=== PATIENT | female | born 1995 | race Caucasian/White ===

== ENCOUNTER 2018-02-09 18:19 | Emergency (ER) | payer SELFPAY ==
[2018-02-09] MEDS ORDERED: NA CHLORIDE 0.9% 1,000 ML ONE (19:57)
[2018-02-09 20:00] LABS: Bicarbonate 26 mEq/L (21-31); Glucose Level 95 mg/dL (65-120); Potassium 3.7 mEq/L (3.6-5.0); Sodium Level 138 mEq/L (135-145)
[2018-02-09 20:01] LABS: BUN Blood Urea Nitrogen 13 mg/dL (6-20)
[2018-02-09 20:05] LABS: Urine Blood 2+ (NEG); Urine Glucose NEGATIVE (NEG); Urine Protein NEGATIVE (NEG); Urine Specific Gravity 1.015 (1.005-1.030); Urine pH 5.5 (5.0-7.0)
[2018-02-09 20:14] LABS: HCG, Quantitative < 5.0 mIU/mL (<5)
[2018-02-09 20:22] LABS: Absolute Monocytes 0.8 K/uL (0.1-1.3); Absolute Neutrophil 7.7 K/uL (1.8-8.0); Basophils % 0.6 % (0-1.3); Eosinophils % 1.2 % (0-4.4); Hematocrit 44.9 % (36.0-45.0); Lymphocytes % 25.8 % (15.3-44.8); MCH 29.4 pg (27.0-35.0); MCV 87.5 fL (80-100); MPV 9.1 fL (7.6-11.3); Monocytes % 6.9 % (3.3-12.3); RBC Red Blood Cell Count 5.13 M/uL (3.86-4.86)
[2018-02-09 20:35] LABS: Platelet Estimate ADEQ; Urine White Blood Cell Casts OK
[2018-02-09 20:36] LABS: Blood Morphology Comment NOT SEEN (NOT SEEN)
--- NOTE | 2018-02-09 21:44 | RAD REPORT ---
EXAM DESCRIPTION: US - Transvaginal Study Probe - 02/09/2018 8:29 pm CLINICAL HISTORY: Vaginal bleeding, pelvic pain. COMPARISON: None. FINDINGS: The uterus is normal in size, shape and echotexture. The uterus measures 6.1 x 4.2 x 3.3 c m. The endometrial stripe measures 6 mm, normal. Both ovaries are normal in size, shape and echotexture. The right ovary measures 3.6 x 2.0 x 1.6 cm. The left ovary measures 3.0 x 2.5 x 2.0 cm. No ovarian or parovarian lesions. No adnexal masses. Normal Doppler blood flow was demonstrated to both ovaries. IMPRESSION: Unremarkable study.
--- NOTE | 2018-02-09 21:56 | EDPHYS ---
Physician Documentation [facility] Name: Gloria Mason Age: 22 yrs Sex: Female : 1995 Arrival Date: 02/09/2018 Time: 18:20 Bed 2 Private MD: ED Physician Young Vuong HPI: 02/09 19:25 This 22 yrs old Female presents to ER via Ambulatory with complaints of pkl Vaginal Bleeding, Abdominal Pain. 19:25 The patient presents with pelvic pain, vaginal bleeding that is. Onset: The pkl symptoms/episode began/occurred yesterday. Patient said her menstrual period is about 10 days late. 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 - Social history:: Smoking status: Patient uses tobacco products, smokes one-half pack cigarettes per day. ROS: 19:25 Positive for pelvic pain, vaginal bleeding. pkl 19:25 Eyes: Negative for injury, pain, redness, and discharge, ENT: Negative for injury, pain, and discharge, Neck: Negative for injury, pain, and swelling, Cardiovascular: Negative for chest pain, palpitations, and edema, Respiratory: Negative for shortness of breath, cough, wheezing, and pleuritic chest pain. 19:25 Abdomen/GI: Positive for abdominal pain, of the right lower quadrant and left lower quadrant, Negative for nausea, vomiting, and diarrhea. 19:25 Back: Negative for acute changes. 19:25 MS/extremity: Negative for acute changes. 19:25 Skin: Negative for rash. 19:25 Neuro: Negative for altered mental status. Exam: 21:48 Head/Face: Normocephalic, atraumatic. Eyes: Pupils equal round and reactive to light, pkl extra-ocular motions intact. Lids and lashes normal. Conjunctiva and sclera are non-icteric and not injected. Cornea within normal limits. Periorbital areas with no swelling, redness, or edema. ENT: Nares patent. No nasal discharge, no septal abnormalities noted. Tympanic membranes are normal and external auditory canals are clear. Oropharynx with no redness, swelling, or masses, exudates, or evidence of obstruction, uvula midline. Mucous membranes moist. Neck: Trachea midline, no thyromegaly or masses palpated, and no cervical lymphadenopathy. Supple, full range of motion without nuchal rigidity, or vertebral point tenderness. No Meningismus. Chest/axilla: Normal chest wall appearance and motion. Nontender with no deformity. No lesions are appreciated. Cardiovascular: Regular rate and rhythm with a normal S1 and S2. No gallops, murmurs, or rubs. Normal PMI, no JVD. No pulse deficits. Respiratory: Lungs have equal breath sounds bilaterally, clear to auscultation and percussion. No rales, rhonchi or wheezes noted. No increased work of breathing, no retractions or nasal flaring. Abdomen/GI: Soft, non-tender, with normal bowel sounds. No distension or tympany. No guarding or rebound. No evidence of tenderness throughout. 21:48 : Pelvic Exam: the exam is deferred. 21:48 Musculoskeletal/extremity: Exam is negative for acute changes. 21:48 Skin: Exam negative for rash. 21:48 Neuro: Orientation: is normal, Mentation: is normal, Cranial nerves: grossly normal, Motor: is normal. 21:56 : Pelvic Exam: bimanual exam reveals Minimal vag. bleeding noted.. pkl Vital Signs: 18:42 BP 156 / 95; Pulse 130; Resp 16; Temp 97.0(TE); Pulse Ox 99% on R/A; Weight 86.18 kg lk1 (R); Height 5 ft. 8 in. (172.72 cm) (R); Pain 7/10; 19:42 BP 133 / 87; Pulse 98; Resp 16; Pulse Ox 99% on R/A; Pain 3/10; aa1 20:07 BP 117 / 82; Pulse 104; Resp 18; Pulse Ox 98% on R/A; Pain 3/10; aa1 21:37 BP 137 / 84; Pulse 88; Resp 16; Pulse Ox 98% on R/A; aa1 18:42 Body Mass Index 28.89 (86.18 kg, 172.72 cm) lk1 MDM: 19:19 Patient medically screened. pk 21:48 Data reviewed: vital signs, nurses notes, lab test result(s), radiologic studies, pkl ultrasound. 02/09 18:49 Order name: Quantitative Hcg; Complete Time: 20:21 tw4 02/09 18:49 Order name: Abo/rh Typing; Complete Time: 20:21 tw4 02/09 18:49 Order name: Basic Metabolic Panel; Complete Time: 20:21 tw4 02/09 18:49 Order name: CBC with Diff; Complete Time: 20:58 tw4 02/09 19:23 Order name: Urine Dipstick--Ancillary (enter results); Complete Time: 20:21 em1 02/09 19:23 Order name: Urine --Ancillary (enter results); Complete Time: 20:21 em1 02/09 18:49 Order name: Urine Test (obtain specimen); Complete Time: 19:19 tw4 02/09 18:49 Order name: IV Saline Lock; Complete Time: 19:36 tw4 02/09 18:49 Order name: Labs collected and sent; Complete Time: 19:35 tw4 02/09 19:51 Order name: US Transvaginal Study (Probe); Complete Time: 21:46 pkl 02/09 20:23 Order name: ABO/RH no charge; Complete Time: 20:29 EDMS 02/09 20:24 Order name: CBC Smear Scan; Complete Time: 20:58 EDMS 02/09 18:49 Order name: NPO; Complete Time: 19:07 tw4 02/09 18:49 Order name: Urine Dipstick-Ancillary (obtain specimen); Complete Time: 19:20 tw4 Administered Medications: 19:41 Drug: NS 0.9% 500 ml Route: IV; Rate: bolus; Site: right antecubital; aa1 20:12 Follow up: IV Status: Completed infusion aa1 20:11 Drug: NS 0.9% 1000 ml Route: IV; Rate: 100 ml/hr; Site: right antecubital; aa1 22:14 Follow up: IV Status: Completed infusion aa1 Disposition: 02/09/18 21:55 Discharged to Home. Impression: Pelvic pain. Vaginal bleeding. - Condition is Stable. - Work release form, Medication Reconciliation Form, Thank You Letter, Antibiotic Education, Prescription Opioid Use form. - Follow up: Private Physician; When: 2 - 3 days; Reason: Re-evaluation by your physician. - Problem is new. - Symptoms have improved. Signatures: Dispatcher [employer] Marcia Corado, FELIPA RN aa1 Young Vuong MD MD pkl Ely Putnam RN RN lk1 Reji Gonzalez MD MD tw4
--- NOTE | 2018-02-09 21:56 | ER ---
Nurse's Notes [facility] Name: Gloria Mason Age: 22 yrs Sex: Female : 1995 Arrival Date: 02/09/2018 Time: 18:20 Bed 2 Private MD: Diagnosis: Pelvic pain. Vaginal bleeding Presentation: 02/09 18:40 Presenting complaint: Patient states: "I started my period yesterday and it's been very lk1 bad. I am cramping more than usual. It made me throw up and they sent me home from work.". Transition of care: patient was not received from another setting of care. Onset of symptoms was February 08, 2018 at 09:00. Care prior to arrival: None. 18:40 Method Of Arrival: Ambulatory lk1 18:40 Acuity: GINNA 4 lk1 Triage Assessment: 18:41 General: Appears in no apparent distress. Behavior is calm, cooperative, appropriate lk1 for age. Pain: Complains of pain in suprapubic area Pain currently is 7 out of 10 on a pain scale. : Reports vaginal bleeding that is bright red, heavy flow. 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 - Social history:: Smoking status: Patient uses tobacco products, smokes one-half pack cigarettes per day. Screenin:20 Abuse screen: Denies threats or abuse. Denies injuries from another. Nutritional aa1 screening: No deficits noted. Tuberculosis screening: No symptoms or risk factors identified. Fall Risk None identified. Assessment: 19:20 General: Appears in no apparent distress. comfortable, Behavior is calm, cooperative, aa1 appropriate for age. Pain: Complains of pain in left lower quadrant and right lower quadrant and suprapubic area Pain currently is 3 out of 10 on a pain scale. Quality of pain is described as aching, crampy, Pain began 1 day ago. Is continuous. Neuro: Level of Consciousness is awake, alert, obeys commands, Oriented to person, place, time, situation, Gait is steady. Cardiovascular: Denies chest pain, palpitations, shortness of breath, Heart tones S1 S2 present Rhythm is regular. Respiratory: Airway is patent Respiratory effort is even, unlabored, Respiratory pattern is regular, symmetrical. GI: Abdomen is non-distended, Bowel sounds present X 4 quads. Abd is soft X 4 quads Reports cramping, nausea, vomiting. : Urine is clear, Reports cramping, vaginal bleeding that is heavy flow since yesterday. EENT: No signs and/or symptoms were reported regarding the EENT system. Derm: Skin is intact, is healthy with good turgor, Skin is pink, warm \\T\\ dry. Musculoskeletal: Circulation, motion, and sensation intact. Capillary refill < 3 seconds. 20:46 Reassessment: Patient appears in no apparent distress at this time. Patient and/or aa1 family updated on plan of care and expected duration. Pain level reassessed. Patient is alert, oriented x 3, equal unlabored respirations, skin warm/dry/pink. Awaiting results. 22:11 Reassessment: Patient appears in no apparent distress at this time. Patient is alert, aa1 oriented x 3, equal unlabored respirations, skin warm/dry/pink. Discussed d/c \\T\\ f/u instructions with pt \\T\\ significant other; denies questions or concerns at this time Patient denies pain at this time. Patient states feeling better. Patient states symptoms have improved. Vital Signs: 18:42 BP 156 / 95; Pulse 130; Resp 16; Temp 97.0(TE); Pulse Ox 99% on R/A; Weight 86.18 kg lk1 (R); Height 5 ft. 8 in. (172.72 cm) (R); Pain 7/10; 19:42 BP 133 / 87; Pulse 98; Resp 16; Pulse Ox 99% on R/A; Pain 3/10; aa1 20:07 BP 117 / 82; Pulse 104; Resp 18; Pulse Ox 98% on R/A; Pain 3/10; aa1 21:37 BP 137 / 84; Pulse 88; Resp 16; Pulse Ox 98% on R/A; aa1 18:42 Body Mass Index 28.89 (86.18 kg, 172.72 cm) lk1 ED Course: 18:20 Patient arrived in ED. as 18:41 Triage completed. lk1 18:43 Arm band placed on right wrist. lk1 19:06 Whitfield, Marcia, RN is Primary Nurse. aa1 19:19 Young Vuong MD is Attending Physician. pkl 19:20 Patient has correct armband on for positive identification. Placed in gown. Bed in low aa1 position. Call light in reach. Pulse ox on. NIBP on. Warm blanket given. 19:20 Initial lab(s) drawn, by me, sent to lab. Urine collected: clean catch specimen, clear. aa1 Inserted saline lock: 20 gauge in right antecubital area, using aseptic technique. Blood collected. 20:30 US Transvaginal Study (Probe) In Process Unspecified. EDMS 21:38 Ultrasound completed. Patient tolerated well. cy 22:11 No provider procedures requiring assistance completed. IV discontinued, intact, aa1 bleeding controlled, No redness/swelling at site. Pressure dressing applied. Administered Medications: 19:41 Drug: NS 0.9% 500 ml Route: IV; Rate: bolus; Site: right antecubital; aa1 20:12 Follow up: IV Status: Completed infusion aa1 20:11 Drug: NS 0.9% 1000 ml Route: IV; Rate: 100 ml/hr; Site: right antecubital; aa1 22:14 Follow up: IV Status: Completed infusion aa1 Outcome: 21:55 Discharge ordered by . pkl 22:11 Discharged to home ambulatory, with significant other. aa1 22:11 Condition: good 22:11 Discharge instructions given to patient, significant other, Instructed on discharge instructions, follow up and referral plans. Demonstrated understanding of instructions, follow-up care. 22:14 Patient left the ED. aa1 Signatures: Dispatcher [employer] EDME Marcia Russell, FELIPA RN aa1 Young Vuong MD MD pkVandana Hernández Leah, RN RN lk1 Adis Freitas
== END 2018-02-09 22:14 | disposition home or self-care (01) ==
LOC: ER 18:19
DX: N93.9 Abnormal uterine and vaginal bleeding, unspecified (principal); F17.210 Nicotine dependence, cigarettes, uncomplicated
CPT/HCPCS: 36415; 76830; 80048; 81003; 81025; 84702; 85025; 86900; 86901; 96360; 96361; 99284; J7030

== ENCOUNTER 2021-10-21 20:21 | Emergency (ER) | payer SELFPAY ==
--- OUTSIDE RECORDS SUMMARY | 2021-10-21 20:28 | XMS REPORT | Continuity of Care Document ---
:1995 Author Organization [facility] t Address [address] [place] [address] Care Team Providers Name Role Phone Neymar ANDRE Attending Clinician Problems This patient has no known problems. Allergies, Adverse Reactions, Alerts Allergy Allergy Status Severity Reaction(s) Onset Inactive Treating Comm ents Source Name Type Date Date Clinician NO KNOWN Drug Active Univers ALLERGIE Class ity of [facility] Social History Social Habit Start Date Stop Date Quantity Comments [facility] to [facility]2 Not sure [facility] Smoking Status Start Date Stop Date Source Unknown if ever smoked [facility] y [facility] Medications Ordered Filled Start Stop Current Ordering Indication Dosage Frequency Signature Comments Components Source Medication Medication Date Date Medication? Clinician (SIG) Name Name azithromyci Yes [id number] 250mg Take 1 Univers n 7-08 tablet by ity of (ZITHROMAX 00:00: mouth [place] Z-GINNY) 250 00 SEE-INSTRU Med ical mg tablet CTIONS. Branch Take 500 mg day 1, then 250 mg days 2 to 5. benzonatate Yes [id number] 100mg Take 1 Univers 100 mg 7-08 capsule by ity of capsule 00:00: mouth 3 [place] 00 (three) Medical times [place] daily as needed for Cough. Vital Signs Vital Name Observation Time Observation Value Comments Source Systolic blood 2020-05-17 11:59:00 134 mm[Hg] Univer sity of [facility] Diastolic blood 2020-05-17 11:59:00 96 mm[Hg] Unive rsity of [facility] Heart rate 2020-05-17 11:59:00 108 /[facility] Body temperature 2020-05-17 11:59:00 37.39 Brandee [facility] Respiratory rate 2020-05-17 11:59:00 20 /min [facility] Body weight 2020-05-17 11:59:00 83.915 kg [facility] Oxygen saturation in 2020-05-17 11:59:00 98 /min [facility] Arterial blood by [facility] Pulse oximetry Branch Procedures Procedure Date / Time Performed Performing Clinician Sourc e XR CHEST 2 VW COVID 2020-05-17 12:36:43 Sam Blackmon [facility] RAPID STREP SCREEN 2020-05-17 12:33:00 Sam Blackmon [facility] FOR GROUP A Medical Branch NOTICE OF PRIVACY 2020-05-17 11:36:49 Doctor Unassigned, No [facility] PRACTICES Name Medical Branch CONSENT/REFUSAL FOR 2020-05-17 11:36:02 Doctor Unassigned, No [facility] DIAGNOSIS AND Name Medical Branch TREATMENT Encounters Start End Encounter Admission Attending Care Care Encounter Source Date/Time Date/Time Type Type Clinicians Facility Department ID 2020-05-17 2020-05-17 Emergency [facility] [id number] Univers 06:56:11 08:48:00 [place] [id number] i [facility] [id number] [facility] [id number] [facility] 084 Branch 2020-05-17 2020-05-17 Emergency X [facility] ERT [id number] Univers 06:35:00 06:35:00 [facility] Results Test Description Test Time Test Comments Results Result Comments Source RAPID STREP SCREEN FOR GROUP A 2020-05-17 12:56:00 Test Item Value Reference Range Interpretation Comme nts Streptococcus pyogenes (group A) antigen (test code = 25391- 2) Negative Negative Lab Interpretation (test code = 27626-4) [facility] [id number] 12:48:38Probable bronchitis. No pneumonia. Disclaimer: Generally, the findings on chest imaging in COVID-19are notspecific, and overlap with other infections, including influenza, H1N1,SARS and MERS.According to the Centers for Disease Control (CDC) and the [employer], viral testing remains the only specific method of diagnosiseven if CXR or CT findings are suggestive of COVID-19. PROCEDURE: CHEST XRAY CLINICAL INDICATION: cough COMPARISON: None FINDINGS: Lungs: Minimal congestion in the right lung base. No pneumonia. Pleura: No pleural effusion or pneumothorax is seen. The heart is normal insize. No acute bony abnormality. [facility], Radiant Results Inft User - 05/17/2020 7:49 AM CDTPRO CEDURE: CHEST XRAY CLINICAL INDICATION: cough COMPARISON: NoneFINDINGS:Lungs: Minimal congestion in the right lung base. No pneumonia.Pleura: No pleural effusion or pneumothorax is seen. The heart is normal insize.No acute bony abnormality.IMPRESSIONProbable bronchitis. No pneumonia.Disclaimer: Generally, the findings on chest imaging in COVID-19 are notspecific, and overlap with other infections, including influenza, H1N1,SARS and MERS.According to the Centers for Disease Control (CDC) and the [employer], viral testing remains the only specific method of diagnosiseven if CXR or CT findings are suggestive of COVID-19.[facility]
[2021-10-21 21:41] LABS: Urine Blood 3+ (Negative); Urine Glucose Negative (Negative); Urine Protein Negative (Negative); Urine pH 6.5 (5.0-7.0)
[2021-10-22 01:37] LABS: Absolute Lymphocytes (CBC) 3.2 K/uL (0.7-4.9); Basophils % 0.6 % (0-1.3); Lymphocytes % 28.6 % (15.3-44.8); MPV 8.5 fL (7.6-11.3); RBC Red Blood Cell Count 4.73 M/uL (3.86-4.86)
[2021-10-22 02:11] LABS: BUN Blood Urea Nitrogen 11 mg/dL (7-18); Bicarbonate 25 mmol/L (21-32); Glucose Level 88 mg/dL (74-106); HCG, Quantitative 32268 mIU/mL (1-3); Potassium 3.5 mmol/L (3.5-5.1); Sodium Level 138 mmol/L (136-145)
[2021-10-22] MEDS ORDERED: ACETAMINOPHEN 500 MG TAB ONE (02:22)
--- NOTE | 2021-10-22 02:50 | EDPHYS ---
Physician Documentation [facility] Name: Gloria Mason Age: 26 yrs Sex: Female : 1995 Arrival Date: 10/21/2021 Time: 20:24 Bed 7 Private MD: ED Physician Jeffery Woodall HPI: 10/22 01:30 This 26 yrs old Female presents to ER via Ambulatory with complaints of Vaginal cp Bleeding, + Preg <12wks. 01:30 The patient presents to the emergency department with abdominal pain, of the right cp lower quadrant and left lower quadrant, that started today, described as crampy, vaginal bleeding, that is light, with clots. 01:30 course: care: none, Ultrasound: the patient has not had an cp ultrasound. Associated signs and symptoms: The patient has no apparent associated signs or symptoms. 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 - Social history:: Smoking status: Reported history of juuling and/or vaping. ROS: 10/22 01:35 : Positive for vaginal bleeding, Negative for urinary symptoms. cp 01:35 Constitutional: Negative for body aches, chills, fever, poor PO intake. cp 01:35 Respiratory: Negative for cough, shortness of breath, wheezing. 01:35 Abdomen/GI: Positive for abdominal cramps. 01:35 All other systems are negative. Exam: 01:40 Constitutional: The patient appears in no acute distress, alert, awake, well developed, cp well nourished. 01:40 Head/Face: Normocephalic, atraumatic. cp 01:40 Eyes: Periorbital structures: appear normal, Conjunctiva: normal, no exudate, no injection, Lids and lashes: appear normal, bilaterally. 01:40 ENT: External ear(s): are unremarkable, Nose: is normal, Mouth: Lips: moist, Oral mucosa: moist, Posterior pharynx: Airway: no evidence of obstruction, patent. 01:40 Chest/axilla: Inspection: normal, Palpation: is normal, no crepitus, no tenderness. 01:40 Cardiovascular: Rate: tachycardic, Rhythm: regular. 01:40 Respiratory: the patient does not display signs of respiratory distress, Respirations: normal, no use of accessory muscles, no retractions, labored breathing, is not present, Breath sounds: are clear throughout. 01:40 Abdomen/GI: Inspection: abdomen appears normal, Bowel sounds: active, all quadrants, Palpation: soft, in all quadrants, mild abdominal tenderness, in the right lower quadrant and left lower quadrant, involuntary guarding, is not appreciated. 01:40 Back: pain, is absent, ROM is normal. Vital Signs: 10/21 20:44 BP 125 / 88; Pulse 119; Resp 16; Temp 98.0(T); Pulse Ox 100% ; Weight 97.52 kg; Height da3 5 ft. 8 in. (172.72 cm); 10/22 02:19 BP 112 / 72; Pulse 96; Resp 18; Pulse Ox 99% on R/A; lp1 10/21 20:44 Body Mass Index 32.69 (97.52 kg, 172.72 cm) da3 MDM: 01:26 Patient medically screened. [facility] 02:00 Differential diagnosis: STD, ectopic . 02:48 Data reviewed: vital signs, nurses notes, lab test result(s), radiologic studies, cp ultrasound. 02:48 Counseling: I had a detailed discussion with the patient and/or guardian regarding: the cp historical points, exam findings, and any diagnostic results supporting the discharge/admit diagnosis, lab results, radiology results, the need for outpatient follow up, an OB/Gyne specialist, to return to the emergency department if symptoms worsen or persist or if there are any questions or concerns that arise at home. ED course: VSS. Patient reports vaginal bleeding improved. Discussed results of labs and US. Will discharge to home for continued monitoring. 10/21 21:41 Order name: Urine Dipstick-Ancillary; Complete Time: 01:10 EDMS 10/22 02:44 Interpretation: Normal except: UBLD 3+. cp 10/21 21:44 Order name: Urine --Ancillary; Complete Time: 01:10 EDMS 10/21 21:44 Order name: Urine --Ancillary (enter results) ds4 10/22 01:10 Order name: Abo/rh Typing cp 10/22 01:10 Order name: Basic Metabolic Panel; Complete Time: 02:43 cp 10/22 01:10 Order name: CBC with Diff; Complete Time: 02:43 cp 10/22 02:43 Interpretation: Normal except: WBC 11.20. cp 10/22 01:10 Order name: Quantitative Hcg; Complete Time: 02:43 cp 10/22 02:44 Interpretation: Abnormal: HCGQ [id number]. cp 10/22 01:10 Order name: IV Saline Lock; Complete Time: 01:58 cp 10/22 01:10 Order name: Labs collected and sent; Complete Time: 01:58 cp 10/22 01:10 Order name: NPO; Complete Time: 01:58 cp 10/22 01:10 Order name: US Transvaginal Ob cp 10/22 01:11 Order name: ABO/RH typing; Complete Time: 02:43 EDMS Administered Medications: 02:23 Drug: Tylenol 1000 mg Route: PO; lp1 03:09 Follow up: Response: Medication administered at discharge. lp1 Disposition: 03:00 Chart complete. cp 11:10 Co-signature as Attending Physician, Jeffery Woodall MD I agree with the assessment and lavonne plan of care. Disposition Summary: 10/22/21 02:49 Discharge Ordered Location: Home cp Problem: new cp Symptoms: have improved cp Condition: Stable cp Diagnosis - Threatened cp Followup: cp - With: Private Physician - When: 48 Hours - Reason: Repeat Beta-HCG (48 Hours) Discharge Instructions: - Discharge Summary Sheet cp - Care cp - Threatened Miscarriage cp - Vaginal Bleeding During , First Trimester cp - Form - Excuse from Work, School, or Physical Activity cp Forms: - Medication Reconciliation Form cp - Thank You Letter cp - Antibiotic Education cp - Prescription Opioid Use cp - Work release form lp1 Prescriptions: - prenat.vits,maia,[id number] Oral tablet - take 1 tablet by ORAL route once daily; 60 tablet; Refills: 0, Product cp Selection Permitted Signatures: Dispatcher [employer] EDJeffery Cadena MD MD cha Pena, Laura, RN RN lp1 Jeffery Vee PA PA cp Allan, David, RN RN da3
--- NOTE | 2021-10-22 02:50 | ER ---
Nurse's Notes [facility] Name: Gloria Mason Age: 26 yrs Sex: Female : 1995 Arrival Date: 10/21/2021 Time: 20:24 Bed 7 Private MD: Diagnosis: Threatened Presentation: 10/21 20:44 Chief complaint: Patient states: vaginal bleed. Coronavirus screen: Vaccine status: da3 Patient reports being unvaccinated. Ebola Screen: No symptoms or risks identified at this time. Initial Sepsis Screen: Does the patient meet any 2 criteria? No. Patient's initial sepsis screen is negative. Does the patient have a suspected source of infection? No. Patient's initial sepsis screen is negative. Risk Assessment: Do you want to hurt yourself or someone else? Patient reports no desire to harm self or others. Onset of symptoms was October 21, 2021. 20:44 Method Of Arrival: Ambulatory da3 20:44 Acuity: GINNA 3 da3 Triage Assessment: 20:47 General: Appears in no apparent distress. comfortable, Behavior is calm, cooperative. da3 : No deficits noted. 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 - Social history:: Smoking status: Reported history of juuling and/or vaping. Screenin/13 02:20 Abuse screen: Denies threats or abuse. Denies injuries from another. Nutritional lp1 screening: No deficits noted. Tuberculosis screening: No symptoms or risk factors identified. Fall Risk None identified. Assessment: 01:30 General: Appears in no apparent distress. Behavior is anxious, crying. Pain: Complains lp1 of pain in lumbar area and suprapubic area Pain currently is 5 out of 10 on a pain scale. Quality of pain is described as aching. Neuro: Level of Consciousness is awake, alert, obeys commands, Oriented to person, place, time, situation, Gait is steady. Cardiovascular: Patient's skin is warm and dry. Respiratory: Respiratory effort is even, unlabored. GI: Abdomen is non-distended. : Reports vaginal bleeding that is bright red, Denies burning with urination. EENT: No signs and/or symptoms were reported regarding the EENT system. Derm: Skin is pink, warm \T\ dry. Musculoskeletal: No deficits noted. 02:19 Reassessment: Patient returned from ultrasound. lp1 Vital Signs: 10/21 20:44 BP 125 / 88; Pulse 119; Resp 16; Temp 98.0(T); Pulse Ox 100% ; Weight 97.52 kg; Height da3 5 ft. 8 in. (172.72 cm); 10/22 02:19 BP 112 / 72; Pulse 96; Resp 18; Pulse Ox 99% on R/A; lp1 10/21 20:44 Body Mass Index 32.69 (97.52 kg, 172.72 cm) da3 ED Course: 10/21 20:24 Patient arrived in ED. bp1 20:47 Triage completed. da3 20:47 Arm band placed on left wrist. da3 10/22 01:10 Jeffery Vee PA is PHCP. cp 01:10 Jeffery Woodall MD is Attending Physician. cp 01:10 Macie Thapa is Primary Nurse. tw5 01:20 Inserted saline lock: 20 gauge in right antecubital area, using aseptic technique. lp1 Blood collected. 01:30 Patient has correct armband on for positive identification. lp1 01:55 US Transvaginal Ob In Process Unspecified. EDMS 02:21 Primary Nurse role handed off by Macie Thapa lp1 02:21 Jeny Gipson, RN is Primary Nurse. lp1 03:08 No provider procedures requiring assistance completed. intact, No redness/swelling at lp1 site. Pressure dressing applied. Administered Medications: 02:23 Drug: Tylenol 1000 mg Route: PO; lp1 03:09 Follow up: Response: Medication administered at discharge. lp1 Outcome: 02:49 Discharge ordered by . cp 03:08 Discharged to home via ambulance, with significant other. lp1 03:08 Condition: good 03:08 Discharge instructions given to patient, Instructed on discharge instructions, follow up and referral plans. medication usage, Demonstrated understanding of instructions, follow-up care, medications, Prescriptions given X 1. 03:09 Patient left the ED. lp1 Signatures: Dispatcher [employer] EDMS Jeny Gipson, RN RN lp1 Jeffery Vee PA PA cp [place], [facility] Bowen Pollard RN RN da3 Macie Thapa tw5
[2021-10-22 03:22] VITALS: TEMP 98
[2021-10-22 03:24] VITALS: BP 112/72; O2SAT 99
--- NOTE | 2021-10-22 07:40 | RAD REPORT ---
EXAM DESCRIPTION: US - Transvaginal OB - 10/22/2021 1:55 am CLINICAL HISTORY: with abdominal pain COMPARISON: None. FINDINGS: The uterus measures 8 x 5 x 5 centimeters. A gestational sac measures 2.1 centimeters. A yolk sac is seen. A pole is not clearly seen. Ovaries are normal in size and echotexture.. A 2 centimeter left ovarian cyst The right and left adnexa unremarkable No significant free fluid IMPRESSION: Gestational sac within the endometrium without visualization of a pole. . These findings may represent a failed . Another consideration is that this represents a viab le IUP in which the pole is not yet seen. It is recommended that the patient have serial beta H CG levels and followup endovaginal sonogram in 1 week
== END 2021-10-22 03:09 | disposition home or self-care (01) ==
LOC: ER 20:21
DX: O20.0 Threatened abortion (principal)
CPT/HCPCS: 36415; 76817; 80048; 81003; 81025; 84702; 85025; 86900; 86901; 99284